=== PATIENT | male | born 1950 | race Caucasian/White ===

== ENCOUNTER → 2018-05-31 13:07 | Outpatient (CLI) | payer MEDICARE, OTHER, SELFPAY ==
--- NOTE | 2018-05-31 18:07 | LEAS ---
Arterial Study - Arterial Study Arterial Study: This is a 67-year-old male with paresthesias in the lower extremities. The patient also experiences weakness in his lower extremities associated with exertion. Suspecting the presence of atherosclerotic peripheral arterial occlusive disease, the patient was brought to the noninvasive vascular laboratory at this time for the purpose of bilateral noninvasive lower extremity arterial assessment. Doppler signal assessment was used to evaluate the pulses at ankle level bilaterally. The posterior tibial and dorsalis pedis pulses were triphasic bilaterally. Segmental limb pressures were obtained bilaterally. The right low thigh pressure was measured at 184 mmHg. The right calf pressure was measured at 200 mmHg. The right ankle pressure, as determined by posterior tibial pulse, was measured at 170 mmHg. The right ankle pressure, as determined by dorsalis pedis pulse, was measured at 168 mmHg. The left low thigh pressure was measured at 175 mmHg. The left calf pressure was measured at 216 mmHg. The left ankle pressure, as determined by posterior tibial pulse, was measured at 207 mmHg. The left ankle pressure, as determined by dorsalis pedis pulse, was measured at 180 mmHg. Pulse-volume recordings were obtained bilaterally and segmentally. Waveform amplitudes appeared to be satisfactory bilaterally at low thigh, calf, and ankle levels. Resting ankle-brachial indices were calculated bilaterally. The resting right ankle-brachial index was calculated to be 1.21. The resting left ankle-brachial index was calculated to be 1.48. The patient was then exercised and a 5% incline at 2.0 mph. He was able to complete exercise without symptoms. Ankle pressures were obtained at intervals following cessation of exercise. 1 minute following cessation of exercise, the right ankle pressure was measured at 224 mmHg, and the left ankle pressure was measured at 253 mmHg. 3 minutes following cessation of exercise, the right ankle pressure was measured at 188 mmHg, and the left ankle pressure was measured at 183 mmHg. 5 minutes following cessation of exercise, the right ankle pressure was measured at 171 mmHg, and the left ankle pressure was measured at 185 mmHg. Impression: Based upon the findings of this resting and exercise noninvasive lower extremity arterial study, there is no evidence of significant arterial occlusive disease in the lower extremities bilaterally. Triphasic waveforms were noted at ankle level bilaterally, which is normal. The resting right ankle-brachial index is normal. The resting left ankle-brachial index is supra-normal, suspicious for arterial calcification, for which clinical correlation is advised. Following a period of exercise, ankle pressures augmented bilaterally, which is a normal physiological response, and not suggestive of significant arterial occlusive disease. In summary, this represents a normal resting and exercise noninvasive lower extremity arterial study bilaterally, but with suspicion of possible arterial calcification, particularly in the left lower extremity.
== END ==
PROVIDERS: Family Provider Preventive Medicine Occupational Medicine; PCP Preventive Medicine Occupational Medicine; Visit Provider Preventive Medicine Occupational Medicine
DX: I73.9 Peripheral vascular disease, unspecified (principal)
CPT/HCPCS: 93924

== ENCOUNTER → 2020-06-14 | Outpatient (CLI) | payer MEDICARE, OTHER, SELFPAY ==
--- NOTE | 2020-06-14 08:00 | PROSBIL_PTH ---
PATIENT: KENYETTA TALLEY LOC: [facility] U#:[id number] AGE/SX: 69/M ROOM: RE06/14/[address]: Dr. Rico Gonzalez MD : 1950 BED: DIS: 06/14/2020 SPEC #: [id number] RECD: 06/14/20 11:56 STATUS: SHARMIN TYRON #: [id number] MARIELA: 06/14/20 08:[address]: Rico Gonzalez DEPT: SURGICAL PATHOLOGY RECD BY: Elijah Sales ENTERED: 06/14/20 11:58 SP TYPE: PROST BX ANNA DR: Dr. Esvin Bolivar DO Tissues: A - PROSTATE RIGHT B - PROSTATE RIGHT C - PROSTATE RIGHT D - PROSTATE LEFT E - PROSTATE LEFT F - PROSTATE LEFT Procedures: PROSTATE BX HEADER OPERATION: Prostate biopsy PRE-OP DIAGNOSIS: Elevated PSA TISSUE SUBMITTED: A - Right apex, B - Right mid, C - Right base, D - Left apex, E - Left mid, F - Left base MICROSCOPIC DIAGNOSIS A. Right prostate, apex, core biopsy: Focal high-grade prostatic intraepithelial neoplasia (HGPIN). B. Right prostate, mid, core biopsy: Adenocarcinoma. Marvell grade: 6 (3+3) Cores involved: 1 out of 2 Tissue involved: 25% Greatest tumor length: 5.5 mm Other findings: Focal high-grade prostatic intraepithelial neoplasia (HGPIN). C. Right prostate, base, core biopsy: Focal glandular atrophy and mild chronic inflammation. D. Left prostate, apex, core biopsy: Adenocarcinoma. Jodie grade: 6 (3+3) Cores involved: 1 out of 1 Tissue involved: 80% Greatest tumor length: 10 mm (discontinuous) Perineural invasion: Present Other findings: High-grade prostatic intraepithelial neoplasia (HGPIN). E. Left prostate, mid, core biopsy: Adenocarcinoma. Marvell grade: 7 (4+3) Cores involved: 2 out of 2 cores Tissue involved: 40% Greatest tumor length: 6 mm Perineural invasion: Present, multifocal. F. Left prostate, base, core biopsy: Adenocarcinoma. Jodie grade: 7 (4+3) Cores involved: 2 out of 2 cores Tissue involved: 60% Greatest tumor length: 11 mm (discontinuous) Perineural invasion: Present, multifocal. AM:yamila 06/15/20 MICROSCOPIC DESCRIPTION Slides are reviewed. GROSS DESCRIPTION A - Received is one container designated prostate, right apex. The specimen consists of one elongated fragment of light andrade-white soft tissue measuring 1 cm in length and 0.1 cm in diameter. The specimen is totally submitted in one cassette. B - Received is one container designated prostate, right mid. The specimen consists of two elongated fragments of light andrade-white soft tissue measuring 1 and 1.4 cm in length and 0.1 cm in diameter. The specimen is totally submitted in one cassette. C - Received is one container designated prostate, right base. The specimen consists of two elongated fragments of light andrade-white soft tissue each measuring 1.4 and 0.1 cm in length and 0.1 cm in diameter. The specimen is totally submitted in one cassette. D - Received is one container designated prostate, left apex. The specimen consists of one elongated fragment of light andrade-white soft tissue measuring 1.5 cm in length and 0.1 cm in diameter. The specimen is totally submitted in one cassette. E - Received is one container designated prostate, left mid. The specimen consists of two elongated fragments of light andrade-white soft tissue measuring 1.2 and 1.4 cm in length and 0.1 cm in diameter. The specimen is totally submitted in one cassette. F - Received is one container designated prostate, left base. The specimen consists of two elongated fragments of light andrade-white soft tissue each measuring 1.6 cm in length and 0.1 cm in diameter. The specimen is totally submitted in one cassette. / SJ:rg 06/14/20 TC:0 CPT: G0146
== END | disposition home or self-care (01) ==
LOC: LABSPEC 10:54
PROVIDERS: PCP Preventive Medicine Occupational Medicine; Referring Provider Urology; Visit Provider Urology
DX: R97.20 Elevated prostate specific antigen [PSA] (principal)
CPT/HCPCS: 88305; G0416

== ENCOUNTER → 2020-06-21 17:42 | Outpatient (CLI) | payer MEDICARE, OTHER, SELFPAY ==
--- NOTE | 2020-06-21 17:48 | CT_ITS ---
STUDY: CT ABDOMEN AND PELVIS WITH AND WITHOUT CONTRAST REASON FOR EXAM: Male, 69 years old. EVAL FOR PROSTATE CA RADIATION DOSAGE (If Supplied By Facility): CTDIvol = ( 16.8 ) mGy, DLP = ( 2133.66 ) mGycm TECHNIQUE: Transaxial images were obtained from the dome of the diaphragm to the symphysis pubis with oral contrast. Oral and amp; IV Gastrografin and amp; 100mL Isovue-300 was administered. Sagittal and coronal images were reconstructed. Individualized dose optimization techniques were used for this CT. COMPARISON: None. FINDINGS: The visualized lung bases are unremarkable. The visualized portions of the heart are within normal limits. Multiple small hepatic cysts and/or hamartomas. Normal gallbladder and extrahepatic biliary system. There are multiple benign calcified granulomata of the spleen. Normal pancreas. Normal bilateral adrenal glands. Bilateral nonobstructing renal stones. Bilateral renal cysts. Normal visualized stomach. Normal small intestine. There are multiple colonic diverticula consistent with diverticulosis. The appendix is visualized and appears normal. Normal abdominal aorta. Normal inferior vena cava. Normal retroperitoneum. Normal urinary bladder. Normal abdominal wall. There are diffuse degenerative changes of the visualized lumbar spine. Multiple lumbar laminectomies. Left hip arthroplasty. CT/CT Abd/Pelvis W/WO Contrast IMPRESSION: No evidence of mass, adenopathy, or metastatic disease. No evidence of appendicitis, acute intestinal pathology, or acute obstructive uropathy. Electronically Signed: Zion Perez MD at 20:16 EDT Tel , Service support ,
== END ==
PROVIDERS: PCP Family Medicine; Referring Provider Urology; Visit Provider Urology
DX: C61 Malignant neoplasm of prostate (principal)
CPT/HCPCS: 74178; Q9967

== ENCOUNTER → 2020-06-26 08:43 | Outpatient (CLI) | payer MEDICARE, OTHER, SELFPAY ==
--- NOTE | 2020-06-26 08:45 | NM_ITS ---
CLINICAL: 69-year-old male with reported history of recent diagnosis of primary prostate carcinoma. WHOLE BODY 99m Tc MDP RADIONUCLIDE BONE SCINTIGRAPHY COMPARISON: CT of the abdomen-pelvis report 06/21/2020 FINDINGS: Following the intravenous administration of 26.0 mCi of 99m Tc MDP, whole body bone images reveal: 1. Increased radiopharmaceutical concentration is defined in the bilateral temporomandibular joints, acromioclavicular, glenohumeral and sternoclavicular compartments of both shoulders, upper cervical spine posteriorly on the right, eighth thoracic vertebra posteriorly on the right, 11th-12th thoracic, second-fifth lumbar vertebra, bilateral knees, the right forefoot, wrist articulations bilaterally. 2. An increase in uptake is defined in the acetabular and trochanteric, proximal femoral components of the presumably asymptomatic left hip prosthesis. 3. The remaining skeletal structures are scintigraphically unremarkable with normal-appearing renal images and urinary bladder activity identified. NM/Bone Scan Whole Body IMPRESSION: 1. The increased tracer distribution identified in the bilateral shoulders, cervical, thoracic and lumbar spine, both knees, right forefoot, right-left wrists, temporal mandibular joints bilaterally is most consistent with degenerative arthritis. 2. There is no definitive typical scintigraphic evidence of diffuse axial skeletal metastatic disease on the current examination. Electronically Signed: Kailash Marin DO at 23:34 EDT Tel , Service support ,
== END ==
PROVIDERS: PCP Family Medicine; Referring Provider Urology; Visit Provider Urology
DX: C61 Malignant neoplasm of prostate (principal)
CPT/HCPCS: 78306

== ENCOUNTER 2020-07-18 08:55 | Day surgery (SDC) | payer MEDICARE, OTHER, SELFPAY ==
[2020-07-18] VITALS (7 sets, daily range): BP systolic 131–154; BP diastolic 67–81; PULSE 55–66; RESP 16–17; TEMP 36.4–36.8; O2SAT 96–100; BMI 25.4
[2020-07-18] MEDS: Lactated Ringers 1,000 ML 100 ML IV (09:38)
--- NOTE | 2020-07-18 12:08 | PCM.HP.STD ---
History of Present Illness Date of Admission: 07/18/20 Chief Complaint: Prostate cancer The patient is a 70 year old male with a history of prostate cancer is elected to undergo radiation therapy today working to taken to the operating room to place gold fiducial markers in the prostate for therapy planning and also again placing a spacer gel matrix between the rectum the prostate to protect the rectum from the prostate. Past Medical History Allergies No Known Allergies Allergy (Verified 07/09/20 14:56) Home Medications: Ambulatory Orders Medication Instructions Recorded Carbidopa/Levodopa [Sinemet] 2 tab PO TIDAC 07/09/20 Gabapentin [Neurontin] 400 mg PO BIDCM 07/09/20 Tamsulosin HCl [Flomax] 0.4 mg PO DAILY 07/09/20 Ciprofloxacin [Cipro] 500 mg PO BID 07/18/20 Surgical History: no surgical history Smoking Status: Never smoker Tobacco Use: Non-smoker Review of Systems Constitutional: Denies: Chills, Fever, Weight Change HEENT: Denies: Head Aches, Sinus Congestion, Sinus Drainage Cardiovascular: Denies: Chest Pain, Palpitations Respiratory: Denies: Cough, Shortness of breath at rest, Sputum production Gastrointestinal: Denies: Abdominal Pain, Nausea, Vomiting Genitourinary: Denies: Dysuria Musculoskeletal: Denies: Joint Pain, Joint Tenderness Skin: Denies: Rash, Wounds Neurological: Denies: Numbness, Tingling, Focal weakness Psychiatric: Denies: Anxiety, Depression, Homicidal Ideations, Suicidal Ideations Hematologic/ Lymphatic: Denies: Easy Bruising, Easy Bleeding VTE Information - Inpt Only VTE Present on Admission: No VTE Mechan Device Prophylaxis: SCD's - Physical Exam Vitals/I&O's: Vital Signs Temp Pulse Resp BP Pulse Ox 97.6 F L 55 L 16 131/76 H 100 07/18/20 09:25 07/18/20 09:25 07/18/20 09:25 07/18/20 09:25 07/18/20 09:25 Oxygen Delivery Method Room Air Weight: 76.1 kg Body Mass Index (BMI) 25.4 General: Alert, Oriented x3, Cooperative HEENT: Atraumatic, PERRLA, EOMI, Normocephalic Neck: Supple, No JVD, Negative Carotid Bruits Lungs: Clear to auscultation, Normal air movement Cardiovascular: Regular rate, No murmurs Abdomen: Bowel Sounds Present, Soft, Non Tender Extremities: No edema, Capillary Refill Less than 3 Seconds Skin: No rashes, No breakdown Musculoskeletal: No Tenderness to Palpation of Joints or Extremities Neurological: Cranial nerves II-XII grossly intact Psych/Mental Status: Normal Affect, Appropriate Current Medications Lactated Ringer's () 1,000 mls @ 100 mls/hr IV .Q10H DAYDAY Last Admin: 07/18/20 09:38 Dose: 100 mls/hr Documented by: Assessment/Plan 70-year-old male with prostate cancer Jodie 7 disease 4, +3 rare plan to proceed with placement of gold fiducial markers and also spacer gel matrix to help reduce rectal toxicity from the radiation.
--- NOTE | 2020-07-18 12:09 | DCINST_ITS ---
Discharge Diet: No Restrictions Discharge Activity: Return to Normal Activity, May Not Drive - for 2 days. Additional Activity Instructions:: Please be aware that pain medications may cause nausea. You should typically eat light foods as you take your pain medication. Pain medication may cause constipation, if this is a problem for you, please discuss with your doctor. Allergies/Adverse Reactions: Allergies No Known Allergies Allergy (Verified 07/09/20 14:56) Medications to take at Discharge Carbidopa/Levodopa 25/100 [Sinemet] 2 tab PO TIDAC 07/09/20 Gabapentin [Neurontin] 400 mg PO BIDCM 07/09/20 Tamsulosin HCl [Flomax] 0.4 mg PO DAILY 07/09/20 Ciprofloxacin [Cipro] 500 mg PO BID 07/18/20 Primary Care Physician: Tone Jackson DO [Primary Care Provider] - Test Results: Test results from this visit will be discussed in further detail at your follow- up appointment, if applicable. Please Follow Up With: Rico Gonzalez MD When: in 2 weeks, please call to make an appointment.
[2020-07-18] MEDS: Cefazolin 2 GM in 0.9% Normal Saline 100 ML IV (12:32)
--- NOTE | 2020-07-18 12:51 | PCM.OPRPT ---
Report of Operation Date of Procedure: 07/18/20 Pre-Operative Diagnosis: Prostate cancer Post-Operative Diagnosis: Same Surgery/Procedure Performed:: Transrectal ultrasound-guided placement of gold fiducial markers via the perineum. Transrectal ultrasound-guided placement of spacer gel organ at risk gel matrix Description of Surgical Findings:: 70-year-old male is elected to have radiation therapy today were taken the surgery to place gold fiducial markers in the prostate for radiation planning at the same time or also can place a spacer gel between the rectum and the prostate to separate the rectum off the prostate. Patient was taken back to the operating room at the smooth induction of general anesthesia he was placed in dorsolithotomy position with the legs high and lithotomy. We used an Ioban drape to hold the testicles and penis up out of the perineum the perineum was shaved prepped and draped in usual sterile fashion. We then put an ultrasound probe into the rectum performed ultrasonography of the prostate could see the prostate transverse view longitudinal view identified the base may middle and apex of the prostate and the seminal vesicles. After ultrasonography was performed I then advanced first gold fiducial marker in the right base and deployed the marker in the right base of the proximal prostate and then advanced the next gold fiducial marker in the left base and then finally in the third focal effusion marker in the right apex once all 3 gold fiducial markers were placed for GPS planning for the radiation therapy we then used bevel down needle to advance through the perineum below the prostate into the space of Denonvilliers' fascia. We injected a puff of 3 cc of saline and had nice separation between the rectum and the prostate and then the gel matrix was prepared in the back table in usual fashion following drill press hand's instructions and then the gel matrix was injected between the rectum the prostate over a course of 15 seconds with very nice separation between the rectum the prostate. Probe was removed pressure was placed in the perineum patient was taken out of lithotomy taken back to PACU in good condition he is can continue with radiation therapy I will see him in the office for his next hormone shot. Type of Anesthesia:: General Drains: none - Admit VTE Documentation VTE Present on Admission: No VTE Mechan Device Prophylaxis: SCD's
== END 2020-07-18 15:16 | disposition home or self-care (01) ==
LOC: SDC 08:56 → AC 08:56
PROVIDERS: Anesthesiology; PCP Family Medicine; Referring Provider Urology; Visit Provider Urology
PROC: (CPT 55874; principal; 2020-07-18 10:45)
DX: C61 Malignant neoplasm of prostate (principal); N52.9 Male erectile dysfunction, unspecified; Z79.899 Other long term (current) drug therapy; Z87.442 Personal history of urinary calculi; G25.0 Essential tremor; Z20.828 Contact with and (suspected) exposure to other viral communicable diseases
CPT/HCPCS: 55874; 55876; 87635; C9803; J7120; J2405; U0003

== ENCOUNTER → 2020-07-31 11:55 | Outpatient (CLI) | payer MEDICARE, OTHER, SELFPAY ==
[2020-07-18 09:25] VITALS: BMI 25.4
[2020-07-31 15:43] LABS: Absolute Lymphocyte Count 1.61 X10^3/uL (0.83-4.51); Basophil# 0.02 X10^3/uL; Basophil% 0.3 % (0-1); Eosinophil# 0.11 X10^3/uL; Eosinophils% 1.8 % (0-5); Hematocrit 42.5 % (40-54); Hemoglobin 13.9 g/dL (13.0-16.5); Lymphocyte # 1.61 X10^3/ul (4.0); Lymphocyte % 26.6 % (19-41); Mean Corp Hgb Conc 32.7 g/dL (32-36); Mean Corpuscular Hgb 30.2 pg (27.0-32.0); Mean Corpuscular Volume 92.2 fL (80-94); Mean Platelet Vol. 10.8 fl (6.2-12.0); Monocyte# 0.31 X10^3/uL; Monocyte% 5.1 % (0-10); NRBC Flagged by Analyzer 0 % (0-5); Platelet Count 155 K/mm3 (150-450); RBC Distribution Width CV 12.8 % (11.6-14.6); RBC Distribution Width SD 42.5 fl (35.1-43.9); Red Blood Count 4.61 M/mm3 (4.6-6.2); White Blood Count 6.1 K/mm3 (4.4-11.0)
[2020-07-31 16:12] LABS: Creatinine, Serum 1.55 mg/dL (0.70-1.30); EST Glomerular Filtration Rate 47 mL/min (>60); Est Glom Filt Rate - Afr Amer 57 mL/min (>60); PSA,Total- Diagnostic 5.32 ng/mL (0.0-4.0)
== END ==
PROVIDERS: PCP Family Medicine; Referring Provider Radiology Radiation Oncology; Visit Provider Radiology Radiation Oncology
DX: C61 Malignant neoplasm of prostate (principal); Z01.818 Encounter for other preprocedural examination
CPT/HCPCS: 36415; 82565; 84153; 85025

== ENCOUNTER → 2020-08-01 13:19 | Outpatient (CLI) | payer MEDICARE, OTHER, SELFPAY ==
[2020-07-18 09:25] VITALS: BMI 25.4
--- NOTE | 2020-08-01 13:24 | CT_ITS ---
STUDY: CT PELVIS WITH CONTRAST REASON FOR EXAM: Male, 70 years old. PROSTATE CANCER RADIATION PLANNING RADIATION DOSAGE (If Supplied By Facility): CTDIvol = ( 24.62 ) mGy, DLP = ( 1386.74 ) mGycm TECHNIQUE: Transaxial imaging of the pelvis was performed without oral contrast. IV 100ML ISOVUE 300 was administered intravenously. Individualized dose optimization techniques were used for this CT. COMPARISON: Comparison is made with prior study dated 06/21/2020. FINDINGS: Normal urinary bladder. The prostate is enlarged. This causes an indentation at the bladder base. It measures 4.2 cm x 5.4 cm. Metallic radiation seeds are seen within the prostate. Normal visualized small intestine. There are multiple colonic diverticula of the sigmoid colon consistent with chronic diverticulosis. There is no pelvic fluid. There is no pelvic lymphadenopathy or mass lesion. There is diffuse atherosclerotic calcification of the pelvic arteries. Normal abdominal wall. There are diffuse degenerative changes of the visualized lumbar spine. Prior left total hip replacement. CT/CT Pelvis W/CONT Therapy IMPRESSION: Prostatic enlargement with indentation of the bladder base. Metallic radiation seeds are seen within the prostate. Electronically Signed: Scott Farfan, at 15:37 EDT , Service support ,
== END ==
PROVIDERS: PCP Family Medicine; Referring Provider Radiology Radiation Oncology; Visit Provider Radiology Radiation Oncology
DX: C61 Malignant neoplasm of prostate (principal)
CPT/HCPCS: 51600; 72193; Q9967

== ENCOUNTER → 2020-08-29 10:14 | Outpatient (CLI) | payer MEDICARE, OTHER, SELFPAY ==
[2020-07-18 09:25] VITALS: BMI 25.4
[2020-08-29 12:14] LABS: Absolute Lymphocyte Count 0.92 X10^3/uL (0.83-4.51); Absolute Neutrophil Count 5.8 X10^3/uL (2.0-7.7); Basophil# 0.01 X10^3/uL; Basophil% 0.1 % (0-1); Eosinophil# 0.05 X10^3/uL; Eosinophils% 0.7 % (0-5); Hematocrit 39.7 % (40-54); Hemoglobin 12.9 g/dL (13.0-16.5); Lymphocyte # 0.92 X10^3/ul (4.0); Mean Corp Hgb Conc 32.5 g/dL (32-36); Mean Corpuscular Hgb 29.7 pg (27.0-32.0); Mean Corpuscular Volume 91.3 fL (80-94); Mean Platelet Vol. 10.4 fl (6.2-12.0); Monocyte# 0.24 X10^3/uL; Monocyte% 3.4 % (0-10); NRBC Flagged by Analyzer 0 % (0-5); Neutrophil # 5.82 X10^3/uL (2.7-7.7); Neutrophil % 82.5 % (47-70); Platelet Count 122 K/mm3 (150-450); RBC Distribution Width CV 12.9 % (11.6-14.6); Red Blood Count 4.35 M/mm3 (4.6-6.2); White Blood Count 7.1 K/mm3 (4.4-11.0)
== END ==
PROVIDERS: PCP Family Medicine; Referring Provider Radiology Radiation Oncology; Visit Provider Radiology Radiation Oncology
DX: C61 Malignant neoplasm of prostate (principal)
CPT/HCPCS: 36415; 85025

== ENCOUNTER → 2020-09-20 10:02 | Outpatient (CLI) | payer MEDICARE, OTHER, SELFPAY ==
[2020-07-18 09:25] VITALS: BMI 25.4
[2020-09-20 12:36] LABS: Absolute Lymphocyte Count 0.81 X10^3/uL (0.83-4.51); Basophil# 0.01 X10^3/uL; Basophil% 0.2 % (0-1); Eosinophil# 0.08 X10^3/uL; Eosinophils% 1.9 % (0-5); Hematocrit 38.8 % (40-54); Hemoglobin 12.9 g/dL (13.0-16.5); Lymphocyte # 0.81 X10^3/ul (4.0); Lymphocyte % 19.7 % (19-41); Mean Corp Hgb Conc 33.2 g/dL (32-36); Mean Corpuscular Hgb 30.4 pg (27.0-32.0); Mean Corpuscular Volume 91.5 fL (80-94); Mean Platelet Vol. 10.4 fl (6.2-12.0); Monocyte# 0.25 X10^3/uL; Monocyte% 6.1 % (0-10); NRBC Flagged by Analyzer 0 % (0-5); Neutrophil # 2.96 X10^3/uL (2.7-7.7); Neutrophil % 72.1 % (47-70); Platelet Count 103 K/mm3 (150-450); RBC Distribution Width CV 13.4 % (11.6-14.6); RBC Distribution Width SD 43.8 fl (35.1-43.9); Red Blood Count 4.24 M/mm3 (4.6-6.2); White Blood Count 4.1 K/mm3 (4.4-11.0)
== END ==
PROVIDERS: PCP Family Medicine; Referring Provider Radiology Radiation Oncology; Visit Provider Radiology Radiation Oncology
DX: C61 Malignant neoplasm of prostate (principal)
CPT/HCPCS: 36415; 85025